=== PATIENT | female | born 1995 | race Caucasian/White ===

== ENCOUNTER 2018-11-29 11:11 | Emergency (ER) | payer MEDICAID ==
[~2018-11-29] VITALS: Ht 152.4 cm; Wt 71.0 kg
[2018-11-29 11:31] VITALS: Ht 152.4 cm; Wt 71.0 kg
[2018-11-29] MEDS ORDERED: ONDANSETRON (ODT) 4 MG TAB ODT STA (13:47)
[2018-11-29] MEDS ORDERED: KETOROLAC 60 MG INJ IM STA (13:47)
[2018-11-29] MEDS ORDERED: ACETAMINOPHEN 500 MG TAB PO STA (13:47)
[2018-11-29] MEDS ORDERED: D-ME473S2 PO (14:51)
[2018-11-29] MEDS ORDERED: ACET500C5 PO (14:51)
[2018-11-29] MEDS ORDERED: OSEL75CA23 PO (14:51)
[2018-11-29] MEDS ORDERED: IBUP-1542 PO (14:51)
[2018-11-29 15:09] VITALS: BP 122/68; PULSE 89; RESP 18
--- NOTE | 2018-11-29 20:58 | ERD ---
ER Documentation Chief Complaint Chief Complaint pt bib self with c/o cough, molina, fever, sore throat HPI 23-year-old female patient with no significant past medical history presents to ED complaining of fever, cough, sore throat that started earlier this morning. Denies any chest pain, shortness of breath, nausea, vomiting, diarrhea, neck stiffness. Patient has not tried taking medications for her cough aside from Tylenol. Reports that she Tylenol. ROS All systems reviewed and are negative except as per history of present illness. Medications Home Meds Active Scripts Acetaminophen* (Tylophen*) 500 Mg Capsule, 1 CAP PO Q6H PRN for PAIN AND OR ELEVATED TEMP, #20 CAP Prov:AVTAR FARNSWORTH PA-C 11/29/18 Ibuprofen* (Motrin*) 600 Mg Tab, 600 MG PO Q6, #30 TAB Prov:AVTAR FARNSWORTH PA-C 11/29/18 Dextromethorphan Hb-Promethazine Hcl* (Promethazine DM* Syrup) 473 Ml Syrup, 5 ML PO Q6 PRN for COUGH, #120 ML Prov:AVTAR FARNSWORTH PA-C 11/29/18 Oseltamivir Phosphate* (Tamiflu*) 75 Mg Capsule, 75 MG PO BID for 5 Days, CAP Prov:AVTAR FARNSWORTH PA-C 11/29/18 Allergies Allergies: Coded Allergies: No Known Allergy (Unverified , 11/29/18) PMhx/Soc Medical and Surgical Hx: pt denies Medical Hx, pt denies Surgical Hx Hx Alcohol Use: No Hx Substance Use: No Hx Tobacco Use: No Smoking Status: Never smoker FmHx Family History: No diabetes, No coronary disease Physical Exam Vitals Vital Signs Date Temp Pulse Resp B/P (MAP) Pulse Ox O2 O2 Flow FiO2 Time Delivery Rate 11/29/18 100.2 89 18 122/68 98 Room Air 15:09 (86) 11/29/18 102.1 14:06 11/29/18 102.1 62 20 133/60 98 11:31 (84) Physical Exam Const: Eck-zds-yirldiivy, well-nourished. In no acute distress. Head: Atraumatic, normocephalic Eyes: Normal Conjunctiva without injection. No purulent discharge. PERRL. EOMI ENT: Normal external ear. Ear canal without erythema. Tympanic membrane pearly ortega without effusion or bulging. Nasal canal clear with normal turbinates. Moist oropharynx without tonsillar exudates. Non-erythematous pharynx. Uvula midline. No drooling. No trismus. Neck: Full range of motion. No meningismus. No cervical lymphadenopathy. Resp: Clear to auscultation bilaterally. No wheezing, rhonchi, rales, or crackles. No accessory muscle use. No retractions. Cardio: Regular rate and rhythm. No murmurs, rubs or gallops. Abd: Soft, non tender, non distended. Normal bowel sounds. No palpable masses. No rebound tenderness. No guarding. Skin: No petechiae or rashes Back: No midline tenderness. No CVA tenderness. Ext: No cyanosis, or edema. Neur: Awake and alert. Psych: Normal Mood and Affect Results 24 hrs Laboratory Tests Test 11/29/18 14:00 POC Beta HCG, Qualitative NEGATIVE Current Medications Medications Dose Sig/Iraj Start Time Status Last (Trade) Ordered Route PRN Stop Time Admin Dose Reason Admin Ondansetron 4 mg ONCE STAT 11/29/18 DC 11/29/18 HCl (Zofran ODT 13:47 14:07 Odt) 11/29/18 13:49 Ketorolac 60 mg ONCE STAT 11/29/18 DC 11/29/18 Tromethamine IM 13:47 14:07 (Toradol) 11/29/18 13:49 500 mg ONCE STAT 11/29/18 DC 11/29/18 Acetaminophen PO 13:47 14:06 (Tylenol 11/29/18 13:49 Tab) Procedures/MDM 23-year-old female patient with no significant past medical history presents ED complaining of cough, headache, fever that started earlier today. Patient has a fever of 102.1. Tylenol was ordered for the first time patient patient's temperature. 60 mg IM was ordered to treat patient for her pain. Zofran was given to patient for her nausea. Patient tolerated oral intake. Patient had excessive p.o. challenge. She reports that she feels better after receiving these medications. Influenza was ordered to further evaluate patient. Influenza A positive. This patient presents to the ED with symptoms consistent with influenza like symptoms. Patient's physical exam include lungs which were clear to auscultation and a normal pulse oximetry. There is a low suspicion for pn eumonia, pneumothorax, mononucleosis, pulmonary embolism, epiglottitis, otitis media, otitis externa, viral/strep pharyngitis, sinusitis, myocarditis, pericarditis, endocarditis, peritonsillar abscess, mastoiditis, retropharyngeal abscess, meningitis, sepsis, acute abdomen or other emergent conditions. Fluids, rest, and symptomatic treatment are recommended for the management of patient's symptoms. Diagnosis: Cough, Fever Discharge medications: Tamiflu, Tylenol, promethazine DM Follow up with primary care physician in 1-2 days. Instructed patient to return to the ED sooner for any worsening symptoms. Patient's questions were answered. Patient is hemodynamically stable. Patient understood and agreed with discharge plan. Patient discharged stable. Disclaimer: Inadvertent spelling and grammatical errors are likely due to EHR/dictation software use and do not reflect on the overall quality of patient care. Also, please note that the electronic time recorded on this note does not necessarily reflect the actual time of the patient encounter. Departure Diagnosis: Primary Impression: Cough Additional Impression: Fever Fever type: unspecified Qualified Codes: R50.9 - Fever, unspecified Condition: Stable Patient Instructions: Fever Control (Adult), Influenza (Adult) Referrals: COMMUNITY CLINICS YOU HAVE RECEIVED A MEDICAL SCREENING EXAM AND THE RESULTS INDICATE THAT YOU DO NOT HAVE A CONDITION THAT REQUIRES URGENT TREATMENT IN THE EMERGENCY DEPARTMENT. FURTHER EVALUATION AND TREATMENT OF YOUR CONDITION CAN WAIT UNTIL YOU ARE SEEN IN YOUR DOCTORS OFFICE WITHIN THE NEXT 1-2 DAYS. IT IS YOUR RESPONSIBILITY TO MAKE AN APPOINTMENT FOR FOLOW-UP CARE. IF YOU HAVE A PRIMARY DOCTOR --you should call your primary doctor and schedule an appointment IF YOU DO NOT HAVE A PRIMARY DOCTOR YOU CAN CALL OUR PHYSICIAN REFERRAL HOTLINE AT IF YOU CAN NOT AFFORD TO SEE A PHYSICIAN YOU CAN CHOSE FROM THE FOLLOWING [facility] CLINICS [facility] [address] [facility] [address] [facility]. [facility] [address] [facility] [address] [facility] [address] [facility]. [facility] [address] [facility]. [facility] YOU HAVE RECEIVED A MEDICAL SCREENING EXAM AND THE RESULTS INDICATE THAT YOU DO NOT HAVE A CONDITION THAT REQUIRES URGENT TREATMENT IN THE EMERGENCY DEPARTMENT. FURTHER EVALUATION AND TREATMENT OF YOUR CONDITION CAN WAIT UNTIL YOU ARE SEEN IN YOUR DOCTORS OFFICE WITHIN THE NEXT 1-2 DAYS. IT IS YOUR RESPONSIBILITY TO MAKE AN APPOINTMENT FOR FOLOW-UP CARE. IF YOU HAVE A PRIMARY DOCTOR --you should call your primary doctor and schedule and appointment IF YOU DO NOT HAVE A PRIMARY DOCTOR YOU CAN CALL OUR PHYSICIAN REFERRAL HOTLINE AT . IF YOU CAN NOT AFFORD TO SEE A PHYSICIAN YOU CAN CHOSE FROM THE FOLLOWING [facility] INSTITUTIONS: [facility] [address] [place] [address] [facility] [address] [place], [place] [id number] [place] [address] [address] [place] [address] [facility] URGENT CARE/SPECIALTIES Additional Instructions: Llame al doctor MAANA y alex rosendo LUCY PARA DENTRO DE 2-3 COHEN.Dgale a la secretaria que nosotros le instruimos hacer esta lucy.Avise o llame si ortega condicin se empeora antes de la lucy. Regresa aqui si peor o no mejor. AVTAR FARNSWORTH PA-C Nov 29, 2018 20:58
== END 2018-11-29 15:10 | disposition home or self-care (01) ==
LOC: FTE 11:11
DX: J10.1 Influenza due to other identified influenza virus with other respiratory manifestations (principal)
CPT/HCPCS: 81025; 87400; 96372; J1885; Z7502; Z7610